=== PATIENT | female | born 1950 | race Caucasian/White ===

== ENCOUNTER 2024-01-01 14:05 | Emergency (ER) | payer MEDICARE, SELFPAY ==
--- NOTE | ~2024-01-01 | XR_ITS ---
XR knee RT 3V Ordering provider: Doug Morin APRN History: . knee injury. RT KNEE BUCKLED TODAY. MEDIAL LAT PAIN . Comparison: None. FINDINGS: BONES: No acute fracture or dislocation. Osteopenia of the bones. JOINT SPACES: Severe osteoarthritic changes with narrowing of the lateral and medial compartments. Na rrowing of the patellofemoral joint. SOFT TISSUES: Normal. IMPRESSION: No acute osseous abnormality right knee. Severe osteoarthritic changes. Reviewed, dictated and finalized at location A.
[2024-01-01 14:07] VITALS: BP 124/90; PULSE 74; RESP 16; TEMP 36.1; O2SAT 97
--- NOTE | 2024-01-01 14:09 | ED.LOWEXIN ---
HPI - Extremity Injury (Lower) General Chief Complaint: Extremity Injury, Lower Stated Complaint: right knee injury, pain Time Seen by Provider: 01/01/24 14:09 History of Present Illness HPI Narrative: 73-year-old female with history of Parkinson's presents emergency room for evaluation of right knee pain. Patient states that she stood up abruptly developed a pain in her right knee. Unable ambulate or bear weight. States when she does stand up feels like her knee is going to give out on her. Patient states that she did not fall but was able to catch herself incident. Related Data Allergies Allergy/AdvReac Type Severity Reaction Status Date / Time No Known Allergies Allergy Verified 01/01/24 14:12 Review of Systems Review of Systems: ROS unremarkable except for noted in HPI Exam Narrative: GENERAL: Chronically ill-appearing, well-nourished, no physical limitations, and in no acute distress. HEAD: Normocephalic, atraumatic. EYES: Conjunctivae normal, PERRLA and EOMI. CHEST: Clear to auscultation. No respiratory distress. No wheezes rales or rhonchi. HEART: Regular rate and rhythm. No murmur heard. Normal peripheral pulses. EXTREMITIES: Right knee: +TTP to posterolateral surface. No obvious bony abnormality, no soft tissue swelling, no ecchymosis, no patellar tracking, I will arrange of motion due to pain SKIN: Warm, dry, no rash. No noted wounds NEURO: No focal deficits. Alert and oriented x3. MAEW. CN's II-XI intact bilaterally, in wheelchair PSYCH: Cooperative. Normal mood and affect. Course Vital Signs Vital signs: Vital Signs Temperature 36.1 C L 01/01/24 14:07 Pulse Rate 74 01/01/24 14:07 Respiratory Rate 16 01/01/24 14:07 Blood Pressure 124/90 01/01/24 14:07 Pulse Oximetry 97 01/01/24 14:07 Oxygen Delivery Room Air 01/01/24 14:07 Temperature 36.1 C L 01/01/24 14:07 Pulse Rate 74 01/01/24 14:07 Respiratory Rate 16 01/01/24 14:07 Blood Pressure 124/90 01/01/24 14:07 Pulse Oximetry 97 01/01/24 14:07 Oxygen Delivery Room Air 01/01/24 14:07 Discharge Plan Discharge Clinical Impression: Acute pain of right knee Patient Disposition: Home, Self-Care Condition: Stable Instructions: Antibiotic Form Prescriptions: New naproxen 500 mg tablet 500 mg PO BID Qty: 14 0RF Follow-up/Referrals: Senthil Maldonado MD [Physician] - PHYSICIAN NOT ON STAFF,NONSTAFF [Non-Staff] - Time of Disposition: 16:21
[2024-01-01] MEDS: IBUPROFEN 600 MG TABLET PO (16:31)
== END 2024-01-01 17:33 | disposition home or self-care (01) ==
PROVIDERS: Emergency Provider Nurse Practitioner Family
DX: M25.561 Pain in right knee (principal); G20.A1 Parkinson's disease without dyskinesia, without mention of fluctuations
CPT/HCPCS: 73562; 99283; A9270